=== PATIENT | male | born 1990 | race African-American/Black ===

== ENCOUNTER 2020-09-13 00:41 | Emergency (ER) | payer OTHER ==
[~2020-09-13] VITALS: Ht 185.4 cm; Wt 141.5 kg
[2020-09-13 01:16] VITALS: Ht 185.4 cm; Wt 141.5 kg
[2020-09-13 02:44] VITALS: BP 117/73
== END 2020-09-13 02:44 | disposition home or self-care (01) ==
LOC: ED 00:41
DX: M54.6 Pain in thoracic spine (principal); M79.10 Myalgia, unspecified site; Z90.89 Acquired absence of other organs; Z91.013 Allergy to seafood
CPT/HCPCS: J1885